=== PATIENT | female | born 1955 | race Caucasian/White ===

== ENCOUNTER → 2017-02-12 | Outpatient (CLI) | payer OTHER | LOC: FIMAGING 13:12 | PROVIDERS: ATTEND Orthopaedic Surgery | DX: M23.261 Derangement of other lateral meniscus due to old tear or injury, right knee (principal); M22.41 Chondromalacia patellae, right knee; M17.11 Unilateral primary osteoarthritis, right knee; M25.461 Effusion, right knee; M66.0 Rupture of popliteal cyst; M65.88 Other synovitis and tenosynovitis, other site; M76.891 Other specified enthesopathies of right lower limb, excluding foot ==

== ENCOUNTER → 2017-02-23 | Outpatient (CLI) | payer OTHER | LOC: FIMAGING 07:31 | PROVIDERS: ATTEND Family Medicine | DX: Z12.31 Encounter for screening mammogram for malignant neoplasm of breast (principal) | CPT/HCPCS: G0202 ==

== ENCOUNTER 2017-04-07 06:02 | Day surgery (SDC) | payer OTHER ==
--- NOTE | 2017-04-06 06:16 | GHP ---
[f rep st] PREOP HISTORY AND PHYSICAL DATE OF ADMISSION: 04/07/2017 DATE OF PLANNED PROCEDURE: 04/07/2017 PREOPERATIVE DIAGNOSIS: Meniscus tear, right knee. 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 We have tried to treat this conservativel y, however it continues to be painful, limiting her function, and we have decided to proceed with a p artial medial meniscectomy. PRIOR MEDICAL HISTORY: Asthma. PRIOR SURGICAL HISTORY: She has had orthopedic surgeries in the past. MEDICATIONS: Include inhaler. SOCIAL HISTORY: She is a nurse. She does not smoke. Reports occasional alcohol use. REVIEW OF SYSTEMS: No shortness of breath, no chest pain. PHYSICAL EXAM: GENERAL: Healthy 61-year-old female, alert and oriented x3. HEENT: Normocephalic, atraumatic. Extraocular muscles are intact. NECK: Supple. There is no lymphadenopathy. No JVD. CHEST: Clear to auscultation. CARDIOVASCULAR: Regular rate and rhythm. ABDOMEN: Soft, nontender, nondistended. EXTREMITIES: Focusing on the right knee, she has a low-grade effusion. There is ten derness on the medial joint line. Range of motion is from 5 degrees of full extension to 130 degrees of flexion. She has a positive Gustavo sign on the medial joint line at 60 degrees of flexion. Kn ee is stable to varus and valgus stress testing. 1+ Pillo with a firm endpoint. Negative posterio r drawer. Calf is soft. 5/5 ankle dorsiflexion, plantar flexion, strength. IMAGING: MRI from [facility], dated 02/12/2017, shows a lateral meniscus with some mod erate chondral loss in the lateral joint line. There is a ruptured Patten's cyst. There is some tibi ofibular arthropathy and some grade 2 changes in the patellofemoral compartment. ASSESSMENT: Acute meniscal tear, right knee. PLAN: I recommend proceeding with a partial meniscectomy, chondroplasty. Risks and benefits of infe ction, DVTs postoperatively have been discussed. She understands these risks. Will plan on surgery Monday at [facility]. /[id number]/MODL
--- NOTE | 2017-04-06 09:01 | GHP ---
[f rep st] HISTORY AND PHYSICAL DATE OF SURGERY: 04/07/2017 DIAGNOSIS: Right knee medial meniscal tear. PLANNED SURGERY: Right knee arthroscopic partial medial meniscectomy. HISTORY OF PRESENT ILLNESS: The patient is a 61-year-old female with a long history of right knee pain secondary to a medial meniscal tear. An MRI has shown clear evidence of a tear in the posterior horn of the medial meniscus, and at this point she opts for surgical intervention. PAST MEDICAL HISTORY: History of arthritis, migraines, and hypothyroidism. SURGICAL HISTORY: Right ankle ORIF, tubal ligation, and toe surgery. MEDICATIONS: She takes Tylenol. SOCIAL HISTORY: Occasional alcohol use. No tobacco or drug use. PHYSICAL EXAMINATION: GENERAL: She is alert and oriented. NECK: Supple. No carotid bruits are heard. HEENT: Pupils are equal, round, reactive to light. CARDIAC: Shows regular rate and rhythm. Normal S1, S2. No murmurs, rubs, or gallops. PULMONARY: Shows lungs are clear bilaterally. ABDOMEN: Shows normoactive bowel sounds. Nontender, nondistended. EXTREMITIES: Examination of the right knee shows skin intact. No swelling. No effusion. Range of motion is full. Some tenderness along the joint line. Calf is soft and nontender, with no evidence of DVT. IMPRESSION AND PLAN: The patient presents with a long history of right knee pain secondary to a medial meniscal tear. After failing a course of conservative treatment, she opted for surgical intervention. /[id number]/MODL MTDD
[2017-04-07] MEDS ORDERED: CLINDAMYCIN 900 MG/DEXTROSE 50 ML IV ONE (06:09)
[2017-04-07] MEDS ORDERED: LIDOCAINE 1% 2 ML INJ ONE (06:25)
--- NOTE | 2017-04-07 06:39 | PDHPUP ---
History & Physical Update H&P update statement: This history and physical update is based on an assessment of the patient which was completed after admission or registration (within 24 hours), but prior to the surgery/procedure. H&P update: H&P reviewed & patient examined, no change in patient's condition since H&P completed
[2017-04-07] MEDS ORDERED: LR 1,000 ML IV ONE (06:51)
[2017-04-07] MEDS ORDERED: LIDOCAINE 1% 2 ML INJ ID PRN (06:51)
[2017-04-07] MEDS ORDERED: BUPIVACAINE/EPI 0.5% 30 ML SDV ONE (07:06)
[2017-04-07] MEDS ORDERED: LIDO/EPI 1% **for epidural** 30 ML SDV ONE (07:12)
[2017-04-07] MEDS ORDERED: MIDAZOLAM 2 MG/2 ML VIAL ONE (07:15)
[2017-04-07] MEDS ORDERED: PROPOFOL/EMULSION 500 MG/50 ML BOTTLE IV ONE (07:15)
[2017-04-07] MEDS ORDERED: fentaNYL 100 MCG/2 ML INJ ONE (07:15)
--- NOTE | 2017-04-07 08:01 | POSTOPPROG ---
Post Op Note Date of Operation: 04/07/17 Surgeon: Neo Dahl Anesthesiologist: Xuan Anesthesia: GET(General Endotracheal) Pre-op Diagnosis: RT Lateral meniscus tear Post-op Diagnosis: same Procedure: 1. Partial lateral menisectomy, P-F chondroplasty Inf/Abcess present in the surg proc area at time of surgery?: No EBL: Minimal Complications: none
[2017-04-07] MEDS ORDERED: ONDANSETRON 4 MG/2 ML VIAL ONE (08:02)
[2017-04-07] MEDS ORDERED: DEXAMETHASONE 4 MG/ML VIAL ONE (08:02)
[2017-04-07] MEDS ORDERED: KETOROLAC 30 MG/1 ML SDV ONE (08:02)
[2017-04-07] MEDS ORDERED: RANITIDINE 50 MG/2 ML VIAL ONE (08:02)
[2017-04-07] MEDS ORDERED: LIDOCAINE 2% 5 ML SDV ONE (08:02)
[2017-04-07] MEDS ORDERED: METOCLOPRAMIDE 10 MG/2 ML VIAL ONE (08:02)
[2017-04-07] MEDS ORDERED: fentaNYL 100 MCG/2 ML INJ IVP PRN (08:04)
[2017-04-07] MEDS ORDERED: PROMETHAZINE HCL 25 MG/ML INJ IVP PRN (08:04)
[2017-04-07] MEDS ORDERED: DEXAMETHASONE 4 MG/ML VIAL IVP PRN (08:04)
[2017-04-07] MEDS ORDERED: LR 500 ML IV PRN (08:04)
[2017-04-07] MEDS ORDERED: METOCLOPRAMIDE 10 MG/2 ML VIAL IVP PRN (08:04)
[2017-04-07] MEDS ORDERED: HYDROCODONE/APAP 5/325 TAB PO PRN (08:04)
[2017-04-07] MEDS ORDERED: ACETAMINOPHEN 500 MG TAB PO PRN (08:04)
[2017-04-07] MEDS ORDERED: OXYCODONE/APAP 5/325 TAB PO PRN (08:04)
[2017-04-07] MEDS ORDERED: ONDANSETRON 4 MG/2 ML VIAL IVP PRN (08:04)
[2017-04-07] MEDS ORDERED: MEPERIDINE 25 MG/ML SYR IVP PRN (08:04)
[2017-04-07] MEDS ORDERED: NALOXONE HCL 0.4 MG/ML INJ IVP PRN (08:04)
[2017-04-07] MEDS ORDERED: ALBUTEROL 3 ML DEYVIAL IH PRN (08:04)
--- NOTE | 2017-04-07 08:29 | POSTANESTH ---
Post Anesthetic Evaluation Cardiovascular Status: Normal, Stable Respiratory Status: Normal, Stable Level of Consciousness/Mental Status: Can Participate in Eval Pain Control: Adequate, Prn Tx Ordered Nausea/Vomiting Control: Adequate, Prn Tx Ordered Complications Possibly Related to Anesthesia: None Noted
--- NOTE | 2017-04-07 08:29 | PDANEPAE ---
ANE Past Medical History - Cardiovascular History Hx Hypertension: No Hx Arrhythmias: No Hx Chest Pain: No Hx Coronary Artery / Peripheral Vascular Disease: No Hx CHF / Valvular Disease: No Hx Palpitations: No - Pulmonary History Hx COPD: No Hx Asthma/Reactive Airway Disease: No Hx Recent Upper Respiratory Infection: No Hx Oxygen in Use at Home: No Hx Sleep Apnea: No Sleep Apnea Screening Result - Last Documented: Negative - Neurologic History Hx Cerebrovascular Accident: No Hx Seizures: No Hx Dementia: No - Endocrine History Hx Diabetes: No - Renal History Hx Renal Disorders: No - Liver History Hx Hepatic Disorders: No - Neurological & Psychiatric Hx Hx Neurological and Psychiatric Disorders: No - Cancer History Hx Cancer: No - Congenital Disorder History Hx Congenital Disorders: No - GI History Hx Gastrointestinal Disorders: No - Other Health History Other Health History: NEG - Chronic Pain History Chronic Pain: No - Surgical History Prior Surgeries: ORIF R ANKLE 2000. TUBAL LIGATION. TOE SURGERY ANE Review of Systems Review of Systems: - Exercise capacity METS (RN): 5 METS ANE Patient History - Allergies Allergies/Adverse Reactions: latex [Latex] Allergy (Severe, Verified 04/03/17 14:01) Wheezing & SOB amoxicillin [Amoxicillin] Allergy (Verified 06/13/10 16:17) Sulfa (Sulfonamide Antibiotics) Allergy (Verified 06/13/10 16:16) - Home Medications Home Medications: NO HOME MEDS 06/13/10 [Last Taken Unknown] Advil 04/03/17 [Last Taken 04/03/17] - NPO status NPO Since - Liquids (Date): 04/06/17 NPO Since - Liquids (Time): 23:00 NPO Since - Solids (Date): 04/06/17 NPO Since - Solids (Time): 22:00 - Smoking Hx Smoking Status: Never smoked - Family Anes Hx Family Hx Anesthesia Complications: NEG ANE Labs/Vital Signs - Vital Signs Blood Pressure: 116/73 Heart Rate: 73 Respiratory Rate: 16 O2 Sat (%): 96 Height: 160.02 cm Weight: 78.018 kg ANE Physical Exam - Airway Mallampati Score: Class 1 Mouth exam: normal dental/mouth exam - Pulmonary Pulmonary: no respiratory distress, no rales or rhonchi, clear to auscultation - Cardiovascular Cardiovascular: regular rate and rhythym, no murmur, rub, or gallop, pulses symmetric bilaterally - ASA Status ASA Status: II ANE Anesthesia Plan Anesthesia Plan: GA w LMA
[2017-04-07 09:05] VITALS: TEMP 97.7
[2017-04-07 09:29] VITALS: BP 106/70; PULSE 69; RESP 16; O2SAT 94
--- NOTE | 2017-04-07 10:00 | GOP ---
[f rep st] OPERATIVE REPORT DATE OF OPERATION: 04/07/2017 SURGEON: Neo Dahl MD ANESTHESIA: General. ANESTHESIOLOGIST: Dr. Govea. PREOPERATIVE DIAGNOSIS: Right knee lateral meniscal tear. POSTOPERATIVE DIAGNOSIS: Right knee lateral meniscal tear. PROCEDURE PERFORMED: 1. Arthroscopic partial lateral meniscectomy. 2. Patellofemoral chondroplasty. FINDINGS: ESTIMATED BLOOD LOSS: Minimal. 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 MRI was obtained, which showed a tear in the lateral meniscus as well as partial thickness cartilage loss in the lateral and patellofemoral compartment. Decision was made to proceed with an arthroscopic partial lateral meniscectomy and patellofemoral chondroplasty. DESCRIPTION OF PROCEDURE: After appropriate informed consent was obtained, patient taken to the oper ating room, placed supine on the operating table. Time-out was performed. Patient was identified. Correct site was identified. She received 600 mg clindamycin due to amoxicillin allergy preoperative ly following induction of general endotracheal tube anesthesia. The left leg was prepped and draped in usual sterile fashion. Left leg was placed in a well-padded well leg dukes. All bony prominence s well padded. I instilled 5 mL 1% lidocaine with epinephrine in both the anteromedial and anterolat eral portal, made a small mik incision, introduced the camera through the standard lateral portal. Patellofemoral compartment was inspected. There was some grade 2 changes on the inferior and central pole of the patella. There was an area of full-thickness cartilage loss on the lateral aspect of th e patella. Trochlear groove was in good shape. Medial and lateral gutters were free of debris. I r epositioned the camera, obtained a standard anteromedial portal under direct visualization. Medial m eniscus was probed. It was without injuries. The cartilage overlying the tibia and the femur were i n good shape on the medial side. Limited notch ACL PCL were stable and intact. Lateral meniscus matthew wed a radial tear in the body extending back into the posterior horn of the lateral meniscus. This w as debrided back with a combination of biter and a shaver to a stable smooth rim of tissue. There wa s an area of full-thickness cartilage loss on the weightbearing aspect of the lateral femoral condyle . I gently debrided back the loose cartilage from that. I repositioned the camera in the patellofem oral compartment. I performed a gentle patellofemoral chondroplasty. Instruments were then withdraw n. Portal incisions were closed with 3-0 nylon. I instilled 30 mL 0.5% Marcaine with epinephrine in the knee joint. Soft sterile dressing was applied. JADEN hose were applied. Patient was awakened fr om anesthesia, taken to recovery room in satisfactory condition. There were no immediate intraoperat gen complications. COMPLICATIONS: None. DRAINS: None. /[id number]/MODL
== END 2017-04-07 09:31 | disposition home or self-care (01) ==
LOC: FSGY 06:02
PROVIDERS: ATTEND Orthopaedic Surgery
PROC: 0SBC4ZZ Excision of Right Knee Joint, Percutaneous Endoscopic Approach (ICD-10-PCS; principal; 2017-04-07 07:30)
DX: S83.281A Other tear of lateral meniscus, current injury, right knee, initial encounter (principal); X50.9XXA Other and unspecified overexertion or strenuous movements or postures, initial encounter; E03.9 Hypothyroidism, unspecified; G43.909 Migraine, unspecified, not intractable, without status migrainosus
CPT/HCPCS: J0171; J1100; J1885; J2250; J2405; J2704; J2765; J2780; J3010

== ENCOUNTER → 2018-04-11 | Outpatient (CLI) | payer OTHER | LOC: FIMAGING 07:53 | PROVIDERS: ATTEND Family Medicine | DX: Z12.31 Encounter for screening mammogram for malignant neoplasm of breast (principal) ==